=== PATIENT | female | born 1965 | race Caucasian/White ===

== ENCOUNTER → 2023-04-23 08:21 | Outpatient (BNVA) | payer OTHER, SELFPAY | PROVIDERS: PCP Family Medicine; Visit Provider Family Medicine | DX: E11.9 Type 2 diabetes mellitus without complications (principal) | CPT/HCPCS: 80053; 80061; 83036; 84443; 85025 ==

== ENCOUNTER → 2023-07-25 10:28 | Outpatient (BNVA) | payer OTHER, SELFPAY | PROVIDERS: PCP Family Medicine; Visit Provider Family Medicine | DX: E11.9 Type 2 diabetes mellitus without complications (principal); I10 Essential (primary) hypertension; E03.9 Hypothyroidism, unspecified | CPT/HCPCS: 80053; 83036; 84443; 85025 ==

== ENCOUNTER → 2023-08-22 15:35 | Outpatient (BNVA) | payer OTHER, SELFPAY | PROVIDERS: PCP Family Medicine; Visit Provider Family Medicine | DX: R05.9 Cough, unspecified (principal) | CPT/HCPCS: 87400 ==

== ENCOUNTER → 2023-09-14 10:36 | Outpatient (BNVA) | payer OTHER, SELFPAY | PROVIDERS: PCP Family Medicine; Visit Provider Family Medicine | DX: R05.9 Cough, unspecified (principal); R53.1 Weakness | CPT/HCPCS: 87400; 87426 ==

== ENCOUNTER → 2024-01-30 09:12 | Outpatient (BNVA) | payer OTHER, SELFPAY | PROVIDERS: PCP Family Medicine; Visit Provider Family Medicine | DX: E11.9 Type 2 diabetes mellitus without complications (principal) | CPT/HCPCS: 80053; 80061; 82306; 83036; 84443; 85025 ==

== ENCOUNTER → 2024-05-08 11:53 | Outpatient (BNVA) | payer OTHER, SELFPAY | PROVIDERS: PCP Nurse Practitioner Family; Visit Provider Nurse Practitioner Family | DX: E11.9 Type 2 diabetes mellitus without complications (principal) | CPT/HCPCS: 80053; 80061; 82043; 82607; 83036; 84443; 85025 ==

== ENCOUNTER → 2024-07-15 08:30 | Outpatient (BNVA) | payer OTHER, SELFPAY | PROVIDERS: PCP Nurse Practitioner Family; Visit Provider Nurse Practitioner Family | DX: E11.9 Type 2 diabetes mellitus without complications (principal); R41.3 Other amnesia | CPT/HCPCS: 80053; 80061; 82306; 82607; 82746; 83036; 84443; 85025; 86592 ==

== ENCOUNTER → 2024-07-30 12:49 | Outpatient (BNVA) | payer OTHER, SELFPAY | PROVIDERS: PCP Nurse Practitioner Family; Visit Provider Family Medicine | DX: Z20.828 Contact with and (suspected) exposure to other viral communicable diseases (principal); E11.9 Type 2 diabetes mellitus without complications | CPT/HCPCS: 87400 ==

== ENCOUNTER → 2024-09-04 11:12 | Outpatient (BNVA) | payer OTHER, SELFPAY | PROVIDERS: PCP Nurse Practitioner Family; Visit Provider Internal Medicine | DX: E03.9 Hypothyroidism, unspecified (principal); E11.9 Type 2 diabetes mellitus without complications; E78.2 Mixed hyperlipidemia | CPT/HCPCS: 36415; 80053; 80061; 82044; 83036; 83690; 84439; 84443 ==

== ENCOUNTER → 2024-09-16 12:59 | Outpatient (BNVA) | payer OTHER, SELFPAY | PROVIDERS: PCP Nurse Practitioner Family; Visit Provider Nurse Practitioner Family | DX: E03.9 Hypothyroidism, unspecified (principal); E11.9 Type 2 diabetes mellitus without complications | CPT/HCPCS: 80053; 83690; 84439 ==

== ENCOUNTER 2024-09-18 07:13 | Outpatient (RCR) | payer OTHER, SELFPAY | END 2024-09-22 23:59 | disposition home or self-care (01) | LOC: SPT 07:13 | PROVIDERS: PCP Nurse Practitioner Family; Visit Provider Nurse Practitioner Family | DX: R42 Dizziness and giddiness (principal) | CPT/HCPCS: 95992; 97161 ==

== ENCOUNTER 2024-09-23 06:30 | Outpatient (RCR) | payer OTHER, SELFPAY | END 2024-09-26 09:22 | disposition home or self-care (01) | LOC: SPT 06:30 | PROVIDERS: PCP Nurse Practitioner Family; Visit Provider Nurse Practitioner Family | DX: R42 Dizziness and giddiness (principal) | CPT/HCPCS: 95992 ==

== ENCOUNTER → 2024-10-15 09:11 | Outpatient (BNVA) | payer SELFPAY | PROVIDERS: PCP Nurse Practitioner Family; Visit Provider Internal Medicine | DX: B35.1 Tinea unguium (principal); R53.1 Weakness; E78.2 Mixed hyperlipidemia; E87.6 Hypokalemia; E03.9 Hypothyroidism, unspecified; E11.9 Type 2 diabetes mellitus without complications; I10 Essential (primary) hypertension | CPT/HCPCS: 80053; 83690; 84439 ==

== ENCOUNTER → 2024-11-04 09:13 | Outpatient (BNVA) | payer SELFPAY | PROVIDERS: PCP Nurse Practitioner Family; Visit Provider Internal Medicine | DX: E03.9 Hypothyroidism, unspecified (principal); E78.2 Mixed hyperlipidemia; E11.9 Type 2 diabetes mellitus without complications | CPT/HCPCS: 84439 ==

== ENCOUNTER → 2024-12-04 09:36 | Outpatient (BNVA) | payer SELFPAY | PROVIDERS: PCP Nurse Practitioner Family; Visit Provider Internal Medicine | DX: E03.9 Hypothyroidism, unspecified (principal); E11.9 Type 2 diabetes mellitus without complications; E78.2 Mixed hyperlipidemia | CPT/HCPCS: 82044; 83036 ==

== ENCOUNTER → 2024-12-05 08:58 | Outpatient (BNVA) | payer SELFPAY | PROVIDERS: PCP Nurse Practitioner Family; Visit Provider Nurse Practitioner Family | DX: E03.9 Hypothyroidism, unspecified (principal); E11.9 Type 2 diabetes mellitus without complications; E78.2 Mixed hyperlipidemia | CPT/HCPCS: 80053; 80061; 84439; 84443 ==

== ENCOUNTER → 2025-01-20 16:58 | Outpatient (BNVA) | payer SELFPAY | PROVIDERS: PCP Nurse Practitioner Family; Visit Provider Specialist | DX: G31.84 Mild cognitive impairment of uncertain or unknown etiology (principal) | CPT/HCPCS: 36415; 82542; 83520 ==

== ENCOUNTER 2025-02-26 08:51 | Outpatient (CLI) | payer SELFPAY ==
--- NOTE | 2025-02-26 08:55 | XR_ITS ---
WS: [id number] Lumbar spine, 3 views, 02/26/2025 Clinical Data: M54.50 - Low back pain, unspecified Comparison: None. Findings: There is a compression fracture of the T12 vertebral body with loss of 25% of anterior and central vertebral body height. There is degenerative disc narrowing at all levels with obliteration of the L5-S1 disc. There is a posterior lumbar fusion at L4-L5 with bilateral pedicle screws and connecting rods. There is an artificial disc at L4-L5 and an L4 laminectomy. The transverse processes and SI joints are normal. XR/XR lumbar spine 2-3V* [id number] Impression: 1. Old compression fracture of T12 vertebral body. 2. Multilevel degenerative disc narrowing. 3. Posterior lumbar fusion L4-L5.
== END 2025-02-26 08:52 | disposition home or self-care (01) ==
LOC: RAD 08:54
PROVIDERS: PCP Nurse Practitioner Family; Visit Provider Nurse Practitioner Family
DX: M54.50 Low back pain, unspecified (principal); M48.061 Spinal stenosis, lumbar region without neurogenic claudication; Z87.81 Personal history of (healed) traumatic fracture
CPT/HCPCS: 72100

== ENCOUNTER → 2025-03-02 09:52 | Outpatient (BNVA) | payer SELFPAY | PROVIDERS: PCP Nurse Practitioner Family; Visit Provider Nurse Practitioner Family | DX: R42 Dizziness and giddiness (principal) | CPT/HCPCS: 81000 ==

== ENCOUNTER → 2025-03-23 12:53 | Outpatient (BNVA) | payer SELFPAY | PROVIDERS: PCP Nurse Practitioner Family; Visit Provider Specialist | DX: G56.03 Carpal tunnel syndrome, bilateral upper limbs (principal); Z01.818 Encounter for other preprocedural examination | CPT/HCPCS: 36415; 73110; 80053; 81001; 83036; 85025 ==

== ENCOUNTER 2025-03-27 07:24 | Outpatient (RCR) | payer SELFPAY | END 2025-04-06 09:34 | disposition home or self-care (01) | LOC: SPT 07:24 | PROVIDERS: PCP Nurse Practitioner Family; Visit Provider Nurse Practitioner Family | DX: R42 Dizziness and giddiness (principal) | CPT/HCPCS: 95992; 97161 ==

== ENCOUNTER 2025-04-06 09:15 | Emergency (ER) | payer SELFPAY ==
--- OUTSIDE RECORDS SUMMARY | 2024-04-19 04:00 | XMS_ITS ---
Author Organization [facility] Address [address] [place] [address] Care Team Providers Care Staking Engineer Name Role Phone ANILA LAI MD Primary Care Provider Unavailabl e Aguilar, Kentrell Unavailable [phone] AGUILAR, KENTRELL Unavailable Unavailable Migration, Provider Unavailable Unavailable REASON FOR VISIT EMR-Smith Encounters Encounter Location Date Provider Diagnosis Migrated_Facility 0 0 04/19/2024 Provider Migration Plan Of Treatment No Information Progress Notes * Lisbeth TAYLOR LDOB:1965 (59 yo F)Acc No.[id number]:04/19/2024 Patient: Jaspreet ROTHMANeh Kaur :1965 A ge:58 Y S ex:Female Address:[address] [place] [id number] Subjective: * Chief Complaints: * E MR-Smith * * Date:
--- OUTSIDE RECORDS SUMMARY | 2024-04-20 04:00 | XMS_ITS ---
Author Organization [facility] Address [address] [place] [id number] Care Team Providers Care Pony Ride Operator Name Role Phone ANILA LAI MD Primary Care Provider Unavailabl e Aguilar, Kentrell Unavailable [phone] AGUILAR, KENTRELL Unavailable Unavailable Migration, Provider Unavailable Unavailable Allergies Allergen (clinical drug ingredient) Drug/Non Drug Allergy documented on EMR Reaction Allergy Type Onset Date Status ciprofloxacin Cipro rash Drug Allergy Act humberto Ciprofloxacin Unknown Drug Allergy Act humberto Flu Virus Vaccine Unknown Drug Allergy Active REASON FOR VISIT EMR-Smith Medications Medication SIG (Take, Route, Frequency, Duration) Notes Start Date End Date Status Albuterol Sulfate *Pick strength -form from [facility] for eRX* Active SudoGest *Pick strength-f orm from [facility] for eRX* Active Social History Social History Additional Details Category Social Info Options Details Migrated Social History Migrated Social History Alcoholic beverages? 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 - No, Education - Grade School, If yes, frequency of alcoholic beverages - Less than 1 drink per week., Involved in any legal proceedings or lawsuits? - No, Marital Status - , Nonprescription drug use? - No, Participation in detoxification or rehabilitation - No, Smoking - No, Smoking status (MU) - Unknown if ever smoked, Working currently? - Yes Encounters Encounter Location Date Provider Diagnosis Migrated_Facility 0 0 04/20/2024 Provider Migration Plan Of Treatment No Information Progress Notes * Lisbeth TAYLOR LDOB:1965 (59 yo F)Acc No.[id number]:04/20/2024 Patient: Lisbeth ROTHMAN :1965 A ge:58 Y S ex:Female Address:[address] [place], [place] [id number] Subjective: * Chief Complaints: * E Jailene * Medical History: Arthritis, A sthma, B ronchitis, C onstipation, D iabetes, H igh blood pressure, H istory of measles, mumps, or rubella, K idney stone, M igraine headache, S tomach ulcer, * Surgical History: Hysterectomy Parathyroidectomy Thyroidectomy Tonsillectomy right shoulder surgery - [facility] Mauro Mayer Since 05/2018 right knee replacement - [facility] Aron Julian Since 07/2013 * Family History: M igrated Family History: : Diabetes. * Social History: M igrated Social History: M igrated Social History: Alcoholic beverages? 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 - No, E ducation - Grade School, I f yes, frequency of alcoholic beverages - Less than 1 drink per week., I nvolved in any legal proceedings or lawsuits? - No, M arital Status - , N onprescription drug use? - No, P articipation in detoxification or rehabilitation - No, S moking - No, S moking status (MU) - Unknown if ever smoked, W orking currently? - Yes. * Medications: T akingSudoGest , Notes to Pharmacist: *Pick strength-form from [facility] for eRX*Albuterol Sulfate , Notes to Pharmacist: *Pick strength-form from [facility] for eRX*Taking SudoGest , Notes to Pharmacist: *Pick strength-form from [facility] for eRX*Taking Albuterol Sulfate , Notes to Pharmacist: *Pick strength-form from [facility] for eRX* * Allergies: C iprofloxacin: AllergyCipro: rash - AllergyFlu Virus Vaccine: Allergy * * Date:
[2025-04-06 09:19] VITALS: BP 105/70; PULSE 71; TEMP 36.4; O2SAT 97; BMI 31.4
--- NOTE | 2025-04-06 09:26 | CT_ITS ---
WS: [id number] CT ABDOMEN AND PELVIS NONCONTRAST HISTORY: L lower abdominal/pelvic pain; hx of ureter stones TECHNIQUE: Imaging performed through the abdomen and pelvis. Coronal and sagittal reformats are submitted. All CT scans at [facility] use at least one of these dose optimization techniques: automated exposure control; mA and/or kV adjustment per patient size (includes targeted exams where dose is matched to clinical indication); or iterative reconstruction. DLP: 700.05 mGy.cm COMPARISON: None available. Lower thorax: Lung bases are clear. Visualized heart is normal. Small hiatal hernia. Liver: Normal size liver. No mass or bile duct dilatation. Gallbladder: Normal gallbladder. No pericholecystic fluid or cholelithiasis. No gallbladder wall thickening. Pancreas: Normal size and attenuation. Normal pancreatic duct. No pancreatitis or mass. Spleen: Normal. Adrenal glands: Normal. No mass. Right kidney: Normal size kidney. Several nonobstructing calcifications in the renal pelvis with the largest measuring 3 mm. No ureteral calcifications. No perinephric or periureteral stranding. Left kidney: Normal size kidney with no significant. No significant perinephric stranding. Numerous calcifications are nonobstructing in the central pelvis measuring up to 4 mm. Small extrarenal pelvis. Normal caliber LEFT ureter. Aorta: Mild atherosclerosis abdominal aorta with no aneurysm. No free fluid, intraperitoneal air or significant lymphadenopathy. GI tract: Acute diverticulitis involving a short segment of the sigmoid colon. There is wall thickening and pericolonic inflammation with several diverticula. Mild narrowing of the lumen. The inflammation within the sigmoid colon is closely associated with the dome of the urinary bladder but there is no fistula. No abscess identified. No perforation or free air. No GI tract obstruction. The appendix is normal. No small bowel obstruction. Abdominal wall: Small umbilical hernia contains fat only. Pelvis: No free fluid or free air in the pelvis. Urinary bladder is minimally distended. Osseous structures: Prior posterior lumbar fusion at L3-4 with interbody spacer. T12 compression fracture by 20% with [address]/CT kidney stone [id number] IMPRESSION: 1. Short segment acute sigmoid diverticulitis. No free air or abscess. 2. The inflammation from the sigmoid diverticulitis extends to the dome of the urinary bladder. No fistula at this time. 3. Normal appendix. 4. Bilateral nonobstructing renal calcifications. No ureteral calcification or obstruction.
--- NOTE | 2025-04-06 09:26 | W.ED.ABDPA2 ---
HPI - Abdominal Pain General: Chief Complaint: Abdominal Pain Stated Complaint: Pain in lower left stomach Time Seen by Provider: 04/06/25 09:21 Source: patient Mode of arrival: ambulatory Limitations: no limitations History of Present Illness: Patient is a 59-year-old female presents to ED today with a complaint of left lower abdominal pain. She states symptoms started yesterday although her significant other feels like they were first present 2 to 3 days ago. She does admit her pain got significantly worse yesterday. She states she has a history of nephroureterolithiasis but states she has not had a stone in over 8 years. She does feel like her pain is similar. She has not complained of dysuria, frequency, or urgency. She does feel like her urine is darker than normal. She is not having any flank or back pain. She has no history of diverticulitis. She is not complaining of any rectal pain or painful defecation. No blood in her stools. She is not running fevers. She feels like her bowel habits have been normal. She states her pain seems to be worse when she is up and walking and with movements. MD elicited complaint: abdominal pain Pertinent past history: none Onset (ago): day(s) Location: LLQ Severity: moderate Quality: sharp Radiation: none Migration to: no migration Exacerbating factors: movement Relieving factors: nothing Associated Symptoms: Denies change in bowel habits, chills, dysuria, fever(s), hematochezia, melena, nausea and vomiting Related Data Home Medications ?Medication ?Instructions ?Recorded ?Confirmed diazepam 5 mg tablet 5 mg PO TID PRN Anxiety 09/08/24 04/06/25 empagliflozin 25 mg tablet 205 mg PO DAILY 04/06/25 04/06/25 (Jardiance) gabapentin 100 mg capsule 100 mg PO QPM 04/06/25 04/06/25 gabapentin 300 mg capsule 300 mg PO QAM 04/06/25 04/06/25 glipizide 5 mg tablet 5 mg PO BID 04/06/25 04/06/25 levothyroxine 112 mcg tablet 112 mcg PO QPM 04/06/25 04/06/25 losartan 100 1 tab PO DAILY 04/06/25 04/06/25 mg-hydrochlorothiazide 25 mg tablet metformin 500 mg tablet,extended 1,000 mg PO BID 04/06/25 04/06/25 release 24 hr rosuvastatin 20 mg tablet 20 mg PO QAM 04/06/25 04/06/25 Previous Rx's ?Medication ?Instructions ?Recorded loratadine 10 mg tablet 10 mg PO DAILY #90 tabs 05/06/24 blood-glucose,general labor,cont #1 ea 06/20/24 (FreeStyle Estelita 3 [place]) Diabetic Shoes with 3 pairs of #1 ea 08/19/24 inserts blood-glucose sensor (FreeStyle #6 ea 01/07/25 Estelita 3 Plus Sensor device) galantamine 4 mg tablet 4 mg PO BID #180 tabs 01/20/25 meclizine 25 mg tablet 25 mg PO BID PRN dizziness #30 tabs 03/02/25 amoxicillin 875 mg-potassium 1 tab PO BID #14 tabs 04/06/25 clavulanate 125 mg tablet hydrocodone 5 mg-acetaminophen 325 1 tab PO Q6H PRN pain #14 tabs 04/06/25 mg tablet ondansetron 4 mg disintegrating 4 mg PO Q8H PRN nausea and 04/06/25 tablet vomiting #14 tabs Allergies Allergy/AdvReac Type Severity Reaction Status Date / Time ciprofloxacin Allergy Severe ALGY-Hives Verified 03/23/25 13:42 Review of Systems Const: Denies: fever(s), chills, body aches, fatigue or malaise Card: Denies: chest pain Resp: Denies: dyspnea GI: Reports: abdominal pain; Denies: nausea, vomiting, change in bowel habits, hematochezia or melena : Reports: other (feels like urine is dark); Denies: flank pain, difficulty voiding, dysuria, urinary frequency, urinary urgency or urinary hesitancy Musc: Denies: back pain Skin/Breast: Denies: rash Neuro: Denies: dizziness PFSH ED PFSH: Medical History Hypothyroidism Hyperlipemia, mixed Essential hypertension Diabetes Surgical History History of hysterectomy History of thyroidectomy around 2013 History of arthroscopy of shoulder right History of shoulder replacement left History of knee replacement right History of esophagogastroduodenoscopy (EGD) History of colonoscopy Social History Smoking and tobacco/nicotine status: former use of tobacco/nicotine (while in High School) Physical Exam Const: COMMON NORMALS: no acute distress, average body habitus, patient oriented x3, no limitations, healthy appearing, alert and well nourished GENERAL APPEARANCE: cooperative ORIENTATION/CONSCIOUSNESS: Yes awake, Yes oriented to person, Yes oriented to place and Yes oriented to time Resp: COMMON NORMALS: normal respiratory effort and clear to auscultation bilaterally AUSCULTATION: clear to auscultation bilaterally Cardio: COMMON NORMALS: regular rate and regular rhythm RATE: regular rate RHYTHM: regular rhythm GI: COMMON NORMALS: Normal to inspection, nondistended, normoactive bowel sounds present, Soft to palpation, No hepatosplenomegaly present and no masses INSPECTION: Yes normal to inspection AUSCULTATION: Yes normoactive bowel sounds PALPATION: Yes Soft to palpation, Yes Tenderness to palpation present (GI) (suprapubic) Details: LLQ, No Guarding due to palpation present (GI), No Rigid due to palpation and Yes No hepatosplenomegaly present : COMMON NORMALS: Yes no CVA tenderness BLADDER/KIDNEY EXAM: Yes no CVA tenderness Back/Pelvis: COMMON NORMALS: no CVA tenderness, thoracic and lumbar spine normal to inspection and no thoracic nor lumbar tenderness Extremity: GENERAL: Yes normal exam except as noted Neuro: COMMON NORMALS: patient oriented x3, moves all extremities, no focal motor deficits and no sensory deficits noted SENSORIUM/ORIENTATION: Yes alert, Yes oriented to person, Yes oriented to place and Yes oriented to time Skin: COMMON NORMALS: no rashes or lesions noted GENERAL SKIN EXAM: no rashes or lesions noted Course Vital Signs: Vital signs: Vital Signs Temperature 97.6 F 04/06/25 09:19 Pulse Rate 71 04/06/25 09:19 Blood Pressure 105/70 04/06/25 09:19 Pulse Oximetry 97 04/06/25 09:19 Oxygen Delivery Me thod Room Air 04/06/25 09:19 MDM - Abdominal Pain Medical Decision Making Patient is a 59-year-old female here for left lower abdominal/pelvic pain. She is status post hysterectomy/bilateral oophorectomy. She does report a history of nephroureterolithiasis. DDx included distal ureter stone, diverticulitis, abscess, acute cystitis, among others. Vital signs are stable. Blood work overall is unremarkable. UA does not appear infected. CT scan showing acute sigmoid diverticulitis without perforation or abscess. She will be placed on Augmentin and given pain/nausea medication she can use sparingly. She can follow-up with primary care later this week for reevaluation. Return ED precautions discussed. Differential Diagnosis Likely abdominal pain, calculus of kidney, constipation, diverticulitis, gastroenteritis, pancreatitis and small bowel obstruction Medical Records I reviewed the patient's medical records. Lab Data I reviewed the patient's lab results. 04/06/25 10:15 04/06/25 10:15 Labs/Radiology: Radiology Impressions Abdomen/Pelvis CT 04/06/25 09:26 IMPRESSION: 1. Short segment acute sigmoid diverticulitis. No free air or abscess. 2. The inflammation from the sigmoid diverticulitis extends to the dome of the urinary bladder. No fistula at this time. 3. Normal appendix. 4. Bilateral nonobstructing renal calcifications. No ureteral calcification or obstruction. Laboratory Results WBC 5.87 10^3/uL (3.29-11.43) 04/06/25 10:15 RBC 4.87 10^6/uL (3.85-5.65) 04/06/25 10:15 Hgb 14.20 g/dL (11.27-16.99) 04/06/25 10:15 Hct 43.1 % (36-47) 04/06/25 10:15 MCV 88.5 fl (85-98) 04/06/25 10:15 MCH 29.2 pg (27-33) 04/06/25 10:15 MCHC 32.9 g/dL (30-55) 04/06/25 10:15 RDW 15.3 % (12.1-15.1) H 04/06/25 10:15 Plt Count 237 10^3/cmm (157-399) 04/06/25 10:15 MPV 10.2 fL (7.4-10.4) 04/06/25 10:15 Neut % (Auto) 40.6 % 04/06/25 10:15 Lymph % (Auto) 44.6 % 04/06/25 10:15 [place] % (Auto) 9.5 % 04/06/25 10:15 Eos % (Auto) 4.6 % 04/06/25 10:15 Baso % (Auto) 0.5 % 04/06/25 10:15 Neut # (Auto) 2.38 10^3/uL (1.8-7.7) 04/06/25 10:15 Lymph # (Auto) 2.6 10^3/uL (0.8-4.8) 04/06/25 10:15 [place] # (Auto) 0.6 10^3/uL (0.2-0.9) 04/06/25 10:15 Eos # (Auto) 0.3 10^3/uL (0.0-0.8) 04/06/25 10:15 Baso # (Auto) 0.0 10^3/uL (0.0-0.1) 04/06/25 10:15 Nucleated RBC % (auto) 0 % 04/06/25 10:15 Nucleated RBCs # 0.0 /100WBC 04/06/25 10:15 Sodium 137 mmol/L (136-145) 04/06/25 10:15 Potassium 3.7 mmol/L (3.5-5.1) 04/06/25 10:15 Chloride 100 mmol/L (98-107) 04/06/25 10:15 Carbon Dioxide 25 mmol/L (22-29) 04/06/25 10:15 Anion Gap 15.7 (5-19) 04/06/25 10:15 BUN 12 mg/dL (8-23) 04/06/25 10:15 Creatinine 0.7 mg/dL (0.5-0.9) 04/06/25 10:15 GFR Calculation 85.1 mL/min (90-130) L 04/06/25 10:15 Glucose 107 mg/dL (65-115) 04/06/25 10:15 Calculated Osmolality 284 mOsm/kg (285-295) L 04/06/25 10:15 Calcium 9.4 mg/dL (8.5-10.5) 04/06/25 10:15 Total Bilirubin 0.7 mg/dL (0.15-1.2) 04/06/25 10:15 AST 16 U/L (0-32) 04/06/25 10:15 ALT 14 U/L (0-33) 04/06/25 10:15 Alkaline Phosphatase 77 U/L (35-105) 04/06/25 10:15 Total Protein 7.1 g/dL (6.6-8.7) 04/06/25 10:15 Albumin 4.2 g/dL (3.5-5.2) 04/06/25 10:15 Globulin 2.9 g/dL (1.3-4.6) 04/06/25 10:15 Lipase 69 U/L (13-60) H 04/06/25 10:15 Urine Color Yellow (Yellow) 04/06/25 09:32 Urine Appearance Clear (CLEAR) 04/06/25 09:32 Urine pH 6.5 (5-7) 04/06/25 09:32 Ur Specific [place] 1.015 (1.005-1.030) 04/06/25 09:32 Urine Protein Neg (Negative) 04/06/25 09:32 Urine Glucose (UA) 4+ (Normal) H 04/06/25 09:32 Urine Ketones Negative (Negative) 04/06/25 09:32 Urine Blood Neg (Negative) 04/06/25 09:32 Urine Nitrate Negative (Negative) 04/06/25 09:32 Urine Bilirubin Neg (Negative) 04/06/25 09:32 Urine Urobilinogen Neg mg/dL (Negative) 04/06/25 09:32 Ur Leukocyte Esterase Negative (Negative) 04/06/25 09:32 Amorphous Sediment Not Reportable 04/06/25 09:32 All radiology interpretation(s) finalized by discharge Discharge Plan Discharge Patient Disposition: Home Clinical Impression: Diverticulitis of sigmoid colon Condition: Stable Prescriptions: New amoxicillin-pot clavulanate 875-125 mg tablet 1 tab PO BID Qty: 14 0RF hydrocodone-acetaminophen 5-325 mg tablet 1 tab PO Q6H PRN (Reason: pain) Qty: 14 0RF ondansetron 4 mg tablet,disintegrating 4 mg PO Q8H PRN (Reason: nausea and vomiting) Qty: 14 0RF No Action (DME) FreeStyle Estelita 3 [place] Misc See Rx Instructions .Route Qty: 1 12RF Rx Instructions: check blood sugar TID and As directed (DME) Diabetic Shoes with 3 pairs of inserts See Rx Instructions .Route .MEDSUPPLY Qty: 1 0RF Rx Instructions: As directed HOME loratadine 10 mg tablet 10 mg PO DAILY Qty: 90 1RF diazepam 5 mg tablet 5 mg PO TID PRN (Reason: Anxiety) galantamine 4 mg tablet 4 mg PO BID Qty: 180 2RF Rx Instructions: administer with AM and PM meals may cause nausea meclizine 25 mg tablet 25 mg PO BID PRN (Reason: dizziness) Qty: 30 2RF (DME) FreeStyle Estelita 3 Plus Sensor Device See Rx Instructions .Route Qty: 6 3RF Rx Instructions: change every 15 days losartan-hydrochlorothiazide 100-25 mg tablet 1 tab PO DAILY gabapentin 300 mg capsule 300 mg PO QAM gabapentin 100 mg capsule 100 mg PO QPM metformin 500 mg tablet extended release 24 hr 1,000 mg PO BID glipizide 5 mg tablet 5 mg PO BID levothyroxine 112 mcg tablet 112 mcg PO QPM rosuvastatin 20 mg tablet 20 mg PO QAM Jardiance 25 mg tablet 205 mg PO DAILY Discharge Orders: Discharge ED (Routine); Ordered 04/06/25 Ordered By: Cesia Zelaya Referrals: Caitie Castle FNP [Primary Care Provider, Family Practice] Patient Instructions: Diverticulitis (DC), Opioid Safety, Pain Management, Patient Portal & Ruth Instructions Activity Restrictions/Additional Instructions: As we discussed, CT scan showing diverticulitis. We will place you on antibiotics for this. You can follow-up with primary care later this week for re-evaluation. You need to return to the emergency department for worsening or uncontrollable abdominal pain, fevers, bloody stools, generally feeling worse or unwell, or any other concerns you may have. You may use the pain/nausea medication as needed for significant discomfort. Take the pain medication with an [id number] Colace to help prevent constipation. Print Language: Hong Konger Coding Level of Care Code ED Rn Wound Care for Yuliana Ferreira
[2025-04-06 09:40] LABS: Add Urine Microscopic? NO
[2025-04-06 09:49] LABS: Glucose Urine UA 4+ (Normal); Specific Gravity, Urine 1.015 (1.005-1.030)
[2025-04-06 09:50] LABS: Charge for UA Resulting for Rev; Nitrate Urine Negative (Negative)
[2025-04-06 10:40] LABS: Hematocrit 43.1 % (36-47); Hemoglobin 14.20 g/dL (11.27-16.99); Mean Corpuscular HGB Conc 32.9 g/dL (30-55); Mean Corpuscular Hemoglobin 29.2 pg (27-33); Mean Corpuscular Volume 88.5 fl (85-98); Nucleated Red Blood Cells % 0 %; Platelet Count 237 10^3/cmm (157-399); Red Blood Count 4.87 10^6/uL (3.85-5.65); White Blood Count 5.87 10^3/uL (3.29-11.43)
[2025-04-06 10:55] LABS: Alanine Aminotransferase 14 U/L (0-33); Albumin Level 4.2 g/dL (3.5-5.2); Alkaline Phosphatase 77 U/L (35-105); Anion Gap 15.7 (5-19); Aspartate Amino Transferase 16 U/L (0-32); Blood Urea Nitrogen 12 mg/dL (8-23); Calcium 9.4 mg/dL (8.5-10.5); Carbon Dioxide 25 mmol/L (22-29); Chloride 100 mmol/L (98-107); Creatinine Clr Calc Pharmacy 81.6288; Globulin 2.9 g/dL (1.3-4.6); Glucose 107 mg/dL (65-115); Lipase 69 U/L (13-60); Osmolality Calculated 284 mOsm/kg (285-295); Potassium 3.7 mmol/L (3.5-5.1); Sodium 137 mmol/L (136-145); Total Protein 7.1 g/dL (6.6-8.7)
[2025-04-06 11:09] LABS: Slide Review Slide Review Perform
[2025-04-06 11:30] VITALS: BP 105/70; PULSE 73; O2SAT 95
== END 2025-04-06 11:31 | disposition home or self-care (01) ==
PROVIDERS: Emergency Provider Physician Assistant; PCP Nurse Practitioner Family
DX: K57.32 Diverticulitis of large intestine without perforation or abscess without bleeding (principal); E11.9 Type 2 diabetes mellitus without complications; I10 Essential (primary) hypertension; E78.5 Hyperlipidemia, unspecified; E03.9 Hypothyroidism, unspecified; Z90.710 Acquired absence of both cervix and uterus; Z90.722 Acquired absence of ovaries, bilateral
CPT/HCPCS: 36415; 74176; 80053; 81003; 83690; 85025; 99284

== ENCOUNTER 2025-04-16 05:37 | Day surgery (SDC) | payer SELFPAY ==
[2025-04-16] VITALS (10 sets, daily range): BP systolic 107–169; BP diastolic 69–88; PULSE 70–83; RESP 16–18; TEMP 36.4–36.5; O2SAT 96–99; BMI 31.4
--- NOTE | 2025-04-16 06:15 | ANES.PREANE2 ---
Pre-Anesthetic Assessment Height/Weight: Height 5 ft 2 in Weight 172 lb Temp Pulse Resp BP Pulse Ox O2 Del Method 97.7 F 75 18 107/77 97 Room Air 04/16/25 06:05 04/16/25 06:05 04/16/25 06:05 04/16/25 06:05 04/16/25 06:05 04/16/25 06:05 Preop Diagnosis: Carpal tunnel syndrome Operation Date: 04/16/25 07:00 Proposed Procedures p RIGHT Carpal Tunnel Release(Right) - Rosalba Lockwood MD Was Beta Li taken within 24 hours: N/A Was Clonidine taken within 24 hours: N/A Last intake: Intake Last Liquid Date 04/15/25 Last Liquid Time 20:00 Last Solid Date 04/15/25 Last Solid Time 20:00 Social No alcohol and No tobacco Exam alert, oriented x 3, clear to auscultation bilaterally and regular rate & rhythm Airway Submandibular: within normal limits Cervical ROM: within normal limits Mallampati: Class III Comments: Comments: Missing multiple teeth, denies any loose Anesthetic Plan ASA status: 3 Anesthesia: General Other: No prior issues with anesthesia NPO since yesterday evening History of hypothyroidism on Synthroid Hypertension on losartan?HCTZ Type 2 diabetes, no insulin Labs reviewed from 04/06/2025 acceptable for procedure today Plan for general anesthesia with local via surgeon Medications/Allergies Home Medications ?Medication ?Instructions ?Recorded ?Confirmed ?Last Taken ?Type loratadine 10 mg tablet 10 mg PO DAILY #90 tabs 05/06/24 04/15/25 04/15/25 12:00 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,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,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 06/20/24 04/06/25 04/15/25 12:00 Rx (FreeStyle Estelita 3 [place]) Diabetic Shoes with 3 pairs of #1 ea 08/19/24 04/06/25 04/15/25 12:00 Rx inserts diazepam 5 mg tablet 5 mg PO TID PRN Anxiety 09/08/24 04/15/25 04/15/25 12:00 History blood-glucose sensor (FreeStyle #6 ea 01/07/25 04/06/25 04/15/25 12:00 Rx Estelita 3 Plus Sensor device) galantamine 4 mg tablet 4 mg PO BID #180 tabs 01/20/25 04/15/2525 12:00 Rx meclizine 25 mg tablet 25 mg PO BID PRN dizziness #30 tabs 03/02/25 04/15/25 04/15/25 12:00 Rx empagliflozin 25 mg tablet 205 mg PO DAILY 04/06/25 04/15/25 04/15/25 12:00 History (Jardiance) gabapentin 100 mg capsule 100 mg PO QPM 04/06/25 04/15/25 04/15/25 12:00 History gabapentin 300 mg capsule 300 mg PO QAM 04/06/25 04/15/25 04/15/25 12:00 History glipizide 5 mg tablet 5 mg PO BID 04/06/25 04/15/25 04/15/25 12:00 History hydrocodone 5 mg-acetaminophen 325 1 tab PO Q6H PRN pain #14 tabs 04/06/25 04/15/25 04/15/25 12:00 Rx mg tablet levothyroxine 112 mcg tablet 112 mcg PO QPM 04/06/25 04/15/25 04/15/25 12:00 History losartan 100 1 tab PO DAILY 04/06/25 04/15/25 04/15/25 12:00 History mg-hydrochlorothiazide 25 mg tablet metformin 500 mg tablet,extended 1,000 mg PO BID 04/06/25 04/15/25 04/15/25 12:00 History release 24 hr ondansetron 4 mg disintegrating 4 mg PO Q8H PRN nausea and 04/06/25 04/15/25 04/15/25 12:00 Rx tablet vomiting #14 tabs rosuvastatin 20 mg tablet 20 mg PO QAM 04/06/25 04/15/25 04/15/25 12:00 History Allergies Allergy/AdvReac Type Severity Reaction Status Date / Time ciprofloxacin Allergy Severe ALGY-Hives Verified 04/16/25 06:03 [facility] Anesthesia Medical History (Updated 04/14/25 @ 00:01 by MARITZA Li) Hypothyroidism Hyperlipemia, mixed Essential hypertension Diabetes Surgical History History of hysterectomy History of thyroidectomy around 2013 History of arthroscopy of shoulder right History of shoulder replacement left History of knee replacement right History of esophagogastroduodenoscopy (EGD) History of colonoscopy Social History Smoking and tobacco/nicotine status: former use of tobacco/nicotine (while in High School)
[2025-04-16] MEDS: acetaminophen 1,000 MG/100 ML PIGGYBACK 400 MG IV (06:24)
--- NOTE | 2025-04-16 07:01 | W.PM.OPSUD ---
Surgery/Procedure H&P Update DATE OF PROCEDURE: April 16, 2025 DATE H&P PERFORMED: 03/23/25 H&P UPDATE INFORMATION: I have reviewed H&P completed within last 30 days, I have examined patient prior to procedure, No changes to prior documentation, H&P is in [facility] EMR on date indicated and Risks and benefits of the procedure reviewed PREOP DIAGNOSIS: Carpal tunnel syndrome PLANNED PROCEDURE: Operation Date: 04/16/25 07:00 Proposed Procedures p RIGHT Carpal Tunnel Release(Right) - Rosalba Lockwood MD Related Problem List Diagnoses 1. Carpal tunnel syndrome on right:
[2025-04-16] MEDS: ceFAZolin 2,000 mg SDV 2000 MG IVP (07:04)
[2025-04-16] MEDS: BUPivacaine 0.5% INJ 30 mL XX (07:41)
--- NOTE | 2025-04-16 08:27 | PM.OP ---
Operative Report Date of procedure: April 16, 2025 Pre-op diagnosis: Right carpal tunnel syndrome Post-op diagnosis: Right carpal tunnel syndrome Post-op findings: Very tight transverse carpal ligament and carpal canal Procedure done: Right carpal tunnel release Implants: None Specimens removed/disposition: None Pathology: None Surgeon: Rosalba Lockwood MD Poultry Feed Supervisor: None Anesthesia: General (Per LMA, ASA 3) Estimated blood loss (mL): 2 Tourniquet time (min): 0 (Not utilized) IV fluids (mL): 900 Urine output (mL): 0 (No Ochoa) Complications: None Findings: Significant compression across carpal canal Condition: stable Disposition: PACU (Then return to same-day surgery for discharge to home) Brief History: This 59-year-old woman presented to the office with complaints of significant bilateral wrist pain and numbness and tingling primarily in the thumb index and long fingers of both hands. She had a positive Tinel's and was diagnosed with carpal tunnel syndrome. This was confirmed with nerve conduction studies. After discussion in the office, the patient wished to proceed with carpal tunnel release. Risks and complications were discussed with her. Consents were signed and questions were answered. On the morning of surgery, the patient had more opportunity to have questions answered. Procedure: The patient was brought to the operating theater. The patient had general anesthesia per LMA, ASA 3 which was well-tolerated. The tourniquet was elevated to 250 mmHg for a total tourniquet time of 17 minutes. The patient was also given Ancef 2 g preoperatively. The arm was then prepped and draped with DuraPrep in usual fashion with the arm draped free. A surgical pause was performed. At the time, the surgical pause, we confirmed the site and side of surgery. We also confirmed the patient's identity, as well as appropriate and timely administration of preoperative antibiotics and preoperative surgical markings. An incision was then made along the thenar crease. The incision crossed the wrist joint in a curvilinear fashion. Dissection continued through skin and soft tissues using a scalpel. The palmaris longus was identified along with the transverse carpal ligament. Each of these was released carefully to avoid injury to the median nerve. We were able to dissect gently into the carpal canal which was noted to be quite tight with significant compression across the median nerve. The nerve was visualized and was an hourglass shape. The canal was subsequently palpated to assure there was no bony encroachment upon the canal. The canal was then palpated distally and proximally to assure that my small finger was passed easily without impingement. Finding this to be so, attention was directed to closure. The wound was irrigated with ropivacaine plain. It was then closed with 3-0 nylon in an interrupted mattress fashion. Sterile dressing was then placed consisting of Dermabond, OpSite, fluffed fluffs, sterile soft roll, and an Francisco Javier wrap. The tourniquet was released after 17 minutes. There were no complications. There were no specimens. The procedure was well tolerated. Plan is the patient will be discharged home. Related Problem List Diagnoses 1. Carpal tunnel syndrome on right:
--- NOTE | 2025-04-16 09:15 | ANE.PACU2 ---
Inpatient post-anesthesia follow up: Airway intact: Yes Vital signs: Temperature 97.5 F Pulse Rate 74 Respiratory Rate 17 Blood Pressure 128/77 Pulse Oximetry 96 Oxygen Delivery Me thod Room Air Oxygen Flow Rate 10 Fraction of Inspir ed Oxygen Hydration adequate: Yes Nausea and vomiting: No Pain level: 1 Mental status: Baseline
== END 2025-04-16 09:15 | disposition home or self-care (01) ==
PROVIDERS: PCP Nurse Practitioner Family; Visit Provider Specialist
PROC: (CPT 64721; principal; 2025-04-16 07:00)
DX: G56.01 Carpal tunnel syndrome, right upper limb (principal); E03.9 Hypothyroidism, unspecified; I10 Essential (primary) hypertension; E11.9 Type 2 diabetes mellitus without complications; Z79.891 Long term (current) use of opiate analgesic; Z79.84 Long term (current) use of oral hypoglycemic drugs; Z87.891 Personal history of nicotine dependence
CPT/HCPCS: 64721; 36416; 82962; J0131; J0690; J1885; J2250; J2371; J2704; J3010; J3490; J7030; J9999

== ENCOUNTER → 2025-05-11 10:09 | Outpatient (BNVA) | payer SELFPAY | PROVIDERS: PCP Nurse Practitioner Family; Visit Provider Specialist | DX: Z01.818 Encounter for other preprocedural examination (principal); M65.331 Trigger finger, right middle finger | CPT/HCPCS: 36415; 73130; 80053; 81001; 85025 ==

== ENCOUNTER → 2025-05-26 10:56 | Outpatient (BNVA) | payer SELFPAY | PROVIDERS: PCP Nurse Practitioner Family; Visit Provider Internal Medicine | DX: E03.9 Hypothyroidism, unspecified (principal); E11.9 Type 2 diabetes mellitus without complications | CPT/HCPCS: 80053; 80061; 82043; 83036; 84439; 84443 ==

== ENCOUNTER 2025-06-02 09:59 | Day surgery (SDC) | payer SELFPAY ==
[2025-06-02] VITALS (10 sets, daily range): BP systolic 103–126; BP diastolic 70–99; PULSE 67–80; RESP 15–19; TEMP 36.3–36.9; O2SAT 92–98; BMI 29.2
[2025-06-02] MEDS: acetaminophen 1,000 MG/100 ML PIGGYBACK 400 MG IV (10:36)
--- NOTE | 2025-06-02 11:52 | P.HPUD_ITS ---
Surgery/Procedure H&P Update DATE OF PROCEDURE: June 02, 2025 DATE H&P PERFORMED: 05/11/25 H&P UPDATE INFORMATION: I have reviewed H&P completed within last 30 days, I have examined patient prior to procedure, No changes to prior documentation, H&P is in [facility] EMR on date indicated and Risks and benefits of the procedure reviewed PLANNED PROCEDURE: Operation Date: 06/02/25 12:50 Proposed Procedures p RIGHT Long Finger Trigger Finger Release(Right) - Rosalba Lockwood MD Related Problem List Diagnoses 1. Trigger middle finger of right hand: Qualifiers: Trigger finger location: middle finger
--- NOTE | 2025-06-02 11:55 | ANES.PREANE2 ---
Pre-Anesthetic Assessment Height/Weight: Height 5 ft 2 in Weight 160 lb Temp Pulse Resp BP Pulse Ox O2 Del Method 97.3 F L 74 18 121/82 95 Room Air 06/02/25 10:17 06/02/25 10:17 06/02/25 10:17 06/02/25 10:17 06/02/25 10:17 06/02/25 10:17 Preop Diagnosis: Trigger finger Operation Date: 06/02/25 12:50 Proposed Procedures p RIGHT Long Finger Trigger Finger Release(Right) - Rosalba Lockwood MD Was Beta Li taken within 24 hours: N/A Was Clonidine taken within 24 hours: N/A Last intake: Intake Last Liquid Date 06/01/25 Last Liquid Time 18:00 Last Solid Date 06/01/25 Last Solid Time 20:00 Social No alcohol and No tobacco Exam alert, oriented x 3, clear to auscultation bilaterally and regular rate & rhythm Airway Submandibular: within normal limits Cervical ROM: within normal limits Mallampati: Class II Dentition: full Anesthetic Plan ASA status: 3 Anesthesia: General Other: No prior issues with anesthesia NPO since yesterday evening History of hypothyroidism on Synthroid Hypertension on losartan?HCTZ On chronic Jardiance. Preop BS 135 Labs reviewed from 05/26/2025 acceptable for procedure today Plan for general anesthesia Medications/Allergies Home Medications ?Medication ?Instructions ?Recorded ?Confirmed ?Last Taken ?Type blood-glucose,direct support staff,cont #1 ea 06/20/24 05/11/25 04/15/25 12:00 Rx (FreeStyle Estelita 3 Becket) Diabetic Shoes with 3 pairs of #1 ea 08/19/24 05/11/25 04/15/25 12:00 Rx inserts diazepam 5 mg tablet 5 mg PO TID PRN Anxiety 09/08/24 06/01/25 04/15/25 12:00 History blood-glucose sensor (FreeStyle #6 ea 01/07/25 05/11/25 04/15/25 12:00 Rx Estelita 3 Plus Sensor device) galantamine 4 mg tablet 4 mg PO BID #180 tabs 01/20/25 06/01/25 06/01/25 06:00 Rx meclizine 25 mg tablet 25 mg PO BID PRN dizziness #30 tabs 03/02/25 06/01/25 06/01/25 06:00 Rx empagliflozin 25 mg tablet 205 mg PO DAILY 04/06/25 06/01/25 06/01/25 06:00 History (Jardiance) gabapentin 100 mg capsule 100 mg PO QPM 04/06/25 06/02/25 06/01/25 History gabapentin 300 mg capsule 300 mg PO QAM 04/06/25 06/01/25 06/01/25 06:00 History glipizide 5 mg tablet 5 mg PO BID 04/06/25 06/01/25 06/01/25 06:00 History losartan 100 1 tab PO DAILY 04/06/25 06/01/25 06/01/25 06:00 History mg-hydrochlorothiazide 25 mg tablet ondansetron 4 mg disintegrating 4 mg PO Q8H PRN nausea and 04/06/25 06/01/25 04/15/25 12:00 Rx tablet vomiting #14 tabs rosuvastatin 20 mg tablet 20 mg PO QAM 04/06/25 06/01/25 06/01/25 06:00 History hydrocodone 5 mg-acetaminophen 325 1 tab PO Q6H PRN pain 7 days #20 04/16/25 06/01/25 Unknown Rx mg tablet tabs levothyroxine 125 mcg tablet 125 mcg PO DAILY #30 tabs 06/01/25 06/02/25 06/01/25 Rx (Synthroid) loratadine 10 mg tablet 10 mg PO DAILY 06/01/25 06/01/25 06/01/25 06:00 History metformin 500 mg tablet,extended 500 mg PO BID 06/01/25 06/01/25 06/01/25 06:00 History release 24 hr Allergies Allergy/AdvReac Type Severity Reaction Status Date / Time ciprofloxacin Allergy Severe ALGY-Hives Verified 06/01/25 13:01 Current Medications Generic Name Dose Route Start Last Admin Trade Name Freq PRN Reason Stop Dose Admin Sodium Chloride 1,000 mls @ 30 mls/hr 06/02/25 10:15 06/02/25 10:35 Sodium Chloride 0.9% IV 06/03/25 10:14 30 mls/hr .Q24H LAURA Administration PFSH Anesthesia Medical History Trigger middle finger of right hand Hypothyroidism Hyperlipemia, mixed Essential hypertension Diabetes Surgical History S/P carpal tunnel release Date of Surgery: Surgery: Right CTR Surgeon: Dr. Mandie MD History of hysterectomy History of thyroidectomy around 2013 History of arthroscopy of shoulder right History of shoulder replacement left History of knee replacement right History of esophagogastroduodenoscopy (EGD) History of colonoscopy Social History Smoking and tobacco/nicotine status: former use of tobacco/nicotine (while in High School)
[2025-06-02] MEDS: ceFAZolin 2,000 mg SDV 2000 MG IVP (13:18)
--- NOTE | 2025-06-02 14:07 | PM.OP ---
Operative Report Date of procedure: June 02, 2025 Pre-op diagnosis: Right middle finger trigger finger Post-op diagnosis: Right middle finger trigger finger Post-op findings: Significant thickening and tightening of the A1 kendall with fluid around the flexor tendons Procedure done: Right middle finger trigger finger release Implants: None Specimens removed/disposition: None Pathology: None Surgeon: Rosalba Lockwood MD Iridologist: None Anesthesia: General (Per LMA, ASA 3) Estimated blood loss (mL): 1 Tourniquet time (min): 12 (At 250 mmHg) IV fluids (mL): 600 Urine output (mL): 0 (No Ochoa) Complications: None Findings: As noted above Condition: stable Disposition: PACU (Then return to same-day surgery for discharge to home) Brief History: This 59-year-old woman presents today for right long finger trigger finger release. She underwent carpal tunnel release earlier this year, but she forgot to mention that she had intermittent triggering of this long finger. Since her carpal tunnel release, she has had somewhat increasing symptoms. Secondary to the pain from this, she wishes to proceed with right long finger trigger finger release. Risks and complications of the surgery were discussed with her. Consents were signed and questions were answered. Procedure: The patient was brought to the operating theater. She was administered general anesthesia per LMA, ASA 3. Patient tolerated it well. Patient was given 2 g of Ancef uneventfully. A tourniquet was placed high on the arm and was elevated following exsanguination. Tourniquet time was 12 minutes. Surgical pause was performed prior to commencement of the surgical procedure. At the time of the surgical pause we identified the site and side of surgery. We also identified the patient's identity and appropriate administration of IV antibiotics, Ancef 2 g. Following the surgical pause, an incision was made along the distal palmar crease beneath the long finger. Dissection continued through the skin to the subcutaneous tissues using a scalpel. Blunt dissection was then utilized to spread soft tissues and allow access to the A1 kendall. It was then incised longitudinally and sharply using a knife. This was accomplished without difficulty and atraumatically. Once the A1 kendall was released, tendons were brought up out of the wound and evaluated. There were no gross masses on the tendons. Tendons were returned to normal position. We then irrigated the wound and subsequently closed it with 3-0 nylon with an interrupted mattress type suture. Following closure of the wound, the wound was injected with bupivacaine into the subcutaneous tissues as a local anesthetic. Sterile dressing was then placed consisting of Dermabond, OpSite, fluffed fluffs, and an Francisco Javier wrap. The patient was returned to recovery in satisfactory condition. She will be discharged home to follow-up with me in the office. There were no complications and no specimens. Related Problem List Diagnoses 1. Trigger middle finger of right hand:
== END 2025-06-02 15:20 | disposition home or self-care (01) ==
PROVIDERS: PCP Nurse Practitioner Family; Visit Provider Specialist
PROC: (CPT 26055; principal; 2025-06-02 12:40)
DX: M65.331 Trigger finger, right middle finger (principal); E11.9 Type 2 diabetes mellitus without complications; E03.9 Hypothyroidism, unspecified; I10 Essential (primary) hypertension; Z79.891 Long term (current) use of opiate analgesic; Z79.84 Long term (current) use of oral hypoglycemic drugs; E78.2 Mixed hyperlipidemia; Z87.891 Personal history of nicotine dependence
CPT/HCPCS: 26055; 36416; 82962; J0131; J0690; J1100; J2250; J2405; J2704; J3010; J7030; J9999